=== PATIENT | male | born 1995 | race Caucasian/White ===

== ENCOUNTER 2021-12-09 04:55 | Emergency (ER) | payer OTHER, SELFPAY ==
--- NOTE | 2021-12-09 05:01 | ED.SKABFB ---
HPI - Skin/Abscess/Foreign Bdy General Chief complaint: Skin/Abscess/Foreign Body Stated complaint: SWOLLEN CHIN Time Seen by Provider: 12/09/21 05:01 Source: patient and RN notes reviewed Mode of arrival: ambulatory Limitations: no limitations History of Present Illness HPI narrative: Patient states his mother squeezed on the area on his chin was able to get some pus out of it. This morning he woke up and it was worse than what it was he went to get in the shower. He picked off the scab and tried to squeeze out anything that was present but nothing came out but clear fluid and blood. He says it is exquisitely tender. He denies any fever chills. complaint: abscess/boil Location: face (chin) Severity: severe Quality: burning, aching and constant Pain Consistency: constant Relieving factors: none Exacerbating factors: palpation Context: none Associated symptoms: denies other symptoms Treatments prior to arrival: attempted to drain pus at home Related Data Allergies Allergy/AdvReac Type Severity Reaction Status Date / Time No Known Allergies Allergy Verified 12/09/21 04:59 Review of Systems Review of Systems: All systems reviewed & are unremarkable except as noted in HPI and below PMFSH Past Medical History Medical History (Updated 12/09/21 @ 05:30 by Reece Jackson MD) No active medical problems Surgical History Surgical History (Updated 12/09/21 @ 05:30 by Reece Jackson MD) No pertinent past surgical history Family History Family History Other Hypertension Social History Social History Smoking status: Current every day smoker Tobacco type: cigarettes Alcohol intake: never Substance use: unknown Gender identity (if verbalized by the patient): Male Exam Const: General: healthy appearing, no acute distress and alert Nutritional Appearance: well nourished Orientation/consciousness: patient oriented x3 Limitations: no limitations HENMT: Head: normal to inspection Ears: external ears normal General nose exam: Normal external nose present Face and sinus: normal facial exam Mouth: Yes moist mucous membranes Eyes: Conjunctivae: conjunctivae normal Pupils: Equal, round and reactive pupils present EOM: EOMs intact bilaterally Neck: Neck: normal visual inspection Chest: Chest palpation & inspection: normal inspection of the chest Resp: Effort & Inspection: normal respiratory effort Auscultation: clear to auscultation bilaterally Cardio: Rate: regular rate Rhythm: regular rhythm GI: Auscultation: normal bowel sounds Back/Spine/Pelvis: Cervical Spine: cervical ROM normal Thoracic/Lumbar Spine: thoraco-lumbar ROM normal Skin: General skin exam: normal color Lesions: lesion noted nodule central chin size (2.5 cm), consistency soft, fluctuant ( no distinct organized abscess) and mobile, morphology round, surface warm and tender Rashes: no rashes Neuro: General: patient oriented x3, moves all extremities, no focal motor deficits and CN's II-XI intact bilaterally Speech: normal speech Gait exam (Neuro): Normal gait present Extrem: General: normal to inspection and no clubbing, cyanosis or edema Psych: Mental Status: mental status grossly normal Affect: normal affect Attitude: cooperative Course Course Emergency Course: After the patient numbing of the area and incision and drainage. I could not guarantee that there is an organized abscess that is ready to be drained. If it was not then he would have a scar with no improvement. He declined to have it incised at this time. Wishes to try antibiotics and warm compresses. Discharge Plan Discharge Clinical Impression: Abscess of skin or subcutaneous tissue Qualifiers: Site of cutaneous abscess: face Qualified Code(s): L02.01 - Cutaneous abscess of face Patient Disposition: Home, Self-Care Condition: Stable
[2021-12-09 05:02] VITALS: BP 145/101; PULSE 89; RESP 18; TEMP 36.6; O2SAT 94
[2021-12-09] MEDS: CLINDAMYCIN HCL 150 MG CAP 300 MG PO (05:18)
[2021-12-09 05:28] VITALS: BP 130/100
== END 2021-12-09 05:30 | disposition home or self-care (01) ==
PROVIDERS: Emergency Provider Emergency Medicine
DX: L02.01 Cutaneous abscess of face (principal)
CPT/HCPCS: 99283; A9270

== ENCOUNTER 2021-12-11 19:10 | Emergency (ER) | payer OTHER, SELFPAY ==
[2021-12-11 19:27] VITALS: BP 139/91; PULSE 76; RESP 16; TEMP 36.6; O2SAT 97
--- NOTE | 2021-12-11 19:57 | ED.SKABFB ---
HPI - Skin/Abscess/Foreign Bdy General Chief complaint: Skin/Abscess/Foreign Body Stated complaint: chin Time Seen by Provider: 12/11/21 19:15 Source: patient and RN notes reviewed Mode of arrival: ambulatory Limitations: no limitations History of Present Illness complaint: abscess/boil (chin, firm mildly erythematous 1.5 cm diam lump with draining punctum. was squeezed x 2) Onset (ago): day(s) (3) Tetanus up to date: unsure Location: face Severity: mild Severity scale (1-10): 2 Quality: aching and dull Pain Consistency: constant Relieving factors: medication Exacerbating factors: palpation Context: recent antibiotic Treatments prior to arrival: attempted to drain pus at home and antibiotic Related Data Allergies Allergy/AdvReac Type Severity Reaction Status Date / Time No Known Allergies Allergy Verified 12/11/21 19:21 Review of Systems Review of Systems: All systems reviewed & are unremarkable except as noted in HPI and below Constitutional: Constitutional: Reports no additional constitutional complaints Comments: draining chin firm lump Eyes: Eyes: Reports no additional eye complaints ENT: Reports system reviewed and no additional complaints, except as documented Cardiovascular: Cardiovascular: Reports no additional cardiovascular complaints Respiratory: Respiratory: Reports no additional respiratory complaints Gastrointestinal: Gastrointestinal: Reports no additional gastrointestinal complaints Musculoskeletal: Musculoskeletal: Reports no additional musculoskeletal complaints Integumentary/Breasts: Skin/Breast: Reports system reviewed and no additional complaints, except as docu Neurologic: Reports system reviewed and no additional complaints, except as documented Psychiatric: Psychiatric: Reports no additional psychiatric complaints Endocrine: Endocrine: Reports no additional endocrine complaints Hematologic/Lymphatic: Hematologic/Lymphatic: Reports no additional hematologic/lymphatic complaints Allergic/Immunologic: Allergic/Immunologic: Reports no additional allergic/immunologic complaints PMFSH Past Medical History Medical History Cellulitis of chin No active medical problems Surgical History Surgical History No pertinent past surgical history Family History Family History Other Hypertension Social History Social History Smoking status: Current every day smoker Tobacco type: cigarettes Alcohol intake: never Substance use: unknown Gender identity (if verbalized by the patient): Male Exam Const: General: healthy appearing and no acute distress Nutritional Appearance: well nourished Orientation/consciousness: patient oriented x3 Limitations: no limitations HENMT: Head: normal to inspection Ears: external ears normal, TM's normal bilaterally and EAC's normal General nose exam: Normal external nose present and Normal nares present Face and sinus: sinuses nontender Mouth: Yes Normal oral and palatal mucosa present and Yes moist mucous membranes Teeth and gingiva: dentition normal Throat: posterior oropharynx normal Other: chin: firm 1.5 cm lump, minimal erythema with a draining punctum. oropharyngeal exam wnl. Eyes: Conjunctivae: conjunctivae normal Pupils: Equal, round and reactive pupils present EOM: EOMs intact bilaterally Neck: Neck: normal visual inspection, no lymphadenopathy and no meningeal signs Chest: Chest palpation & inspection: normal inspection of the chest Resp: Effort & Inspection: normal respiratory effort Auscultation: clear to auscultation bilaterally Cardio: Rate: regular rate Rhythm: regular rhythm GI: GI Palp: Yes Soft to palpation and No Tenderness to palpation present (GI) Auscultation: normal bowel sounds
[2021-12-11] MEDS: IBUPROFEN 400 MG TABLET 800 MG PO (20:16)
[2021-12-11] MEDS: cefTRIAXone 1 GM, LIDOCAINE HCL 1% LOCAL INJ 2.1 ML IM (20:36)
[2021-12-11 20:44] VITALS: BP 130/75; PULSE 88; RESP 18; O2SAT 99
== END 2021-12-11 20:45 | disposition home or self-care (01) ==
PROVIDERS: Emergency Provider Emergency Medicine; PCP Nurse Practitioner Family
DX: L03.90 Cellulitis, unspecified (principal)
CPT/HCPCS: 96372; 99283; A9270; J0696

== ENCOUNTER 2022-05-06 23:12 | Emergency (ER) | payer OTHER, SELFPAY ==
--- NOTE | ~2022-05-06 | CT_ITS ---
EXAMINATION: CT abdomen pelvis w con DATE: 05/07/2022 00:02 INDICATION: Abdominal pain TECHNIQUE: Computed tomography (CT) of the abdomen and pelvis was performed with 100 mL Omnipaque-350 intravenous contrast. Automated exposure control and iterative reconstruction technique were employe d. The dose-length product was 323.75 mGy-cm. COMPARISON: None FINDINGS: Lung bases clear. Heart size normal. No pericardial or pleural effusion. Liver, gallbladder, spleen, pancreas, bilateral adrenal glands and left kidney are normal. 4 mm low-attenuation right renal cyst. Fluid throughout multiple loops of small bowel and much of the colon consistent with nonspecific petrona rrhea. No abnormal bowel wall thickening or obstruction. Normal appendix. Bladder is normal. No free intraperitoneal gas or fluid. No pathologically enlarged abdominal or pelvic lymphadenopathy. Mild th oracolumbar levocurvature. IMPRESSION: 1. Nonspecific diarrhea. Correlate clinically for enteritis. Reviewed, dictated and finalized at location A. [employer]
[2022-05-06 23:13] VITALS: PULSE 88; RESP 20; TEMP 36; O2SAT 100
[2022-05-06 23:16] VITALS: BP 136/78; PULSE 85; RESP 18; O2SAT 99
--- NOTE | 2022-05-06 23:17 | ED.ABDPAIN ---
HPI - Abdominal Pain General Chief Complaint: Abdominal Pain Stated Complaint: Abdominal Pain Time Seen by Provider: 05/06/22 23:17 Source: patient and RN notes reviewed Mode of arrival: ambulatory Limitations: no limitations History of Present Illness HPI narrative: patient states he started having lower abdominal pain that was severe sharp stabbing approximately 5 hours prior to arrival. He has been vomiting constantly. He had a small piece of banana and a little bit of water and immediately doubled over in pain threw up. He is just having bilious vomiting at this point. He says he has chills when he vomits and has pain. He does not think he has any fever. He had bowel movement this morning that was normal. MD elicited complaint: abdominal pain Onset (ago): hour(s) (5) Pain Consistency: constant Severity: severe Quality: stabbing and sharp Exacerbating factors: eating Relieving factors: nothing Associated symptoms: nausea, vomiting and chills Related Data Allergies Allergy/AdvReac Type Severity Reaction Status Date / Time No Known Allergies Allergy Verified 05/06/22 23:46 Review of Systems Review of Systems: All systems reviewed & are unremarkable except as noted in HPI and below Respiratory: Respiratory: Denies cough and Denies dyspnea Gastrointestinal: Gastrointestinal: Reports as per HPI Genitourinary: Genitourinary: Denies dysuria and Denies urinary frequency Musculoskeletal: Musculoskeletal: Denies myalgias PMFSH Past Medical History Medical History Cellulitis of chin No active medical problems Surgical History Surgical History No pertinent past surgical history Family History Family History Other Hypertension Social History Social History Smoking status: Current every day smoker Tobacco type: cigarettes Alcohol intake: never Substance use: unknown Living arrangements: with family Gender identity (if verbalized by the patient): Male Exam Const: General: no acute distress, alert and ill appearing acutely Nutritional Appearance: well nourished and thin Orientation/consciousness: patient oriented x3 Limitations: no limitations HENMT: Head: normal to inspection Ears: external ears normal Mouth: Yes dry mucous membranes Eyes: Conjunctivae: conjunctivae normal Pupils: Equal, round and reactive pupils present EOM: EOMs intact bilaterally Neck: Neck: normal visual inspection Resp: Effort & Inspection: normal respiratory effort Auscultation: clear to auscultation bilaterally Cardio: Rate: regular rate Rhythm: regular rhythm GI: GI Palp: Yes Tenderness to palpation present (GI) ( Severe greater in the lower abdominal quadrants as compared to the upper), Yes Guarding due to palpation present (GI) ( moderate to severe throughout) and No Rebound tenderness present Auscultation: Hypoactive bowel sounds present Back/Spine/Pelvis: Cervical Spine: cervical ROM normal Thoracic/Lumbar Spine: thoraco-lumbar ROM normal Skin: General skin exam: normal color Rashes: no rashes Neuro: General: patient oriented x3, moves all extremities, no focal motor deficits and CN's II-XI intact bilaterally Speech: normal speech Gait exam (Neuro): Normal gait present Extrem: General: normal to inspection and no clubbing, cyanosis or edema Psych: Mental Status: mental status grossly normal Affect: normal affect Attitude: cooperative Course Course Emergency Course: Patient given a total of 3 L of fluids IV. He is also given Zofran and Phenergan for nausea. His nausea finally improved and he was able to rest. He was then given metronidazole 500 mg IV for his enteritis found on CT scan. On arrival he also received some Dilaudid for his abdominal pain. He is able to keep water and
[2022-05-06] MEDS: ONDANSETRON INJ 4 MG/2 ML VIAL IV PUSH (23:37)
[2022-05-06] MEDS: SODIUM CHLORIDE 0.9% IV 2,000 ML 999 ML IV CONT (23:38)
[2022-05-06] MEDS: HYDROmorphone HCL INJ (*CRX) 2 MG/ML VIAL 1 MG IV PUSH (23:42)
[2022-05-06 23:46] LABS: Basophils Absolute Auto 0.04 K/mm3 (0.00-0.10); Basophils Percent Auto 0.2 % (0.0-1.0); Eosinophils Absolute Auto 0.04 K/mm3 (0.02-0.50); Eosinophils Percent Auto 0.2 % (1.0-6.0); Hematocrit 43.6 % (40.0-54.0); Hemoglobin 15.2 g/dL (14.0-18.0); Immature Granulocyte Absolute 0.08 K/mm3 (0.00-0.00); Immature Granulocyte Percent A 0.4 % (0.0-0.0); Lymphocytes Absolute Auto 0.95 K/mm3 (1.10-4.50); Lymphocytes Percent Auto 4.8 % (18.0-42.0); Mean Corpuscular HGB Conc 34.9 g/dL (32.0-36.0); Mean Corpuscular Hemoglobin 30.4 pg (27.0-31.0); Mean Corpuscular Volume 87.2 fL (78.0-102.0); Mean Platelet Volume 9.1 fl (8.7-11.0); Monocytes Absolute Auto 0.89 K/mm3 (0.10-0.90); Monocytes Percent Auto 4.5 % (2.0-11.0); Neutrophils Absolute Auto 17.6 K/mm3 (1.7-7.2); Neutrophils Percent Auto 89.9 % (50.0-70.0); Platelet Count Result 281 K/mm3 (150-420); Red Cell Distribution Width 11.5 % (11.6-14.4); White Blood Count 19.6 K/mm3 (4.8-10.8)
[2022-05-07] VITALS (8 sets, daily range): BP systolic 110–135; BP diastolic 63–84; PULSE 80–90; RESP 16–20; TEMP 36.8–37.1; O2SAT 94–99
[2022-05-07 00:01] LABS: Alanine Aminotransferase 17 U/L (16-63); Albumin Level 4.7 g/dL (3.4-5.0); Alkaline Phosphatase 63 U/L (46-116); Anion Gap 15 mmol/L (8-16); Aspartate Amino Transferase 17 U/L (15-37); Bilirubin Direct 0.1 mg/dL (0-0.2); Bilirubin,Total 0.5 mg/dL (0.00-1.00); Blood Urea Nitrogen 18 mg/dL (7-18); CRP < 0.5 mg/dL (0.0-0.9); Calcium 9.5 mg/dL (8.5-10.1); Carbon Dioxide 22 mmol/L (21-32); Chloride 102 mmol/L (98-108); Estimated CRCL calculation 104 ml/min; Estimated Glomerular Filt Rate > 60; Glucose 129 mg/dL (70-99); Lipase 40 U/L (16-77); Osmolality Calculated 291 mOsm/kg (285-295); Potassium 3.7 mmol/L (3.5-5.1); Sodium 139 mmol/L (136-145); Total Protein 8.5 g/dL (6.4-8.2)
[2022-05-07 00:06] LABS: Lactic Acid Reflex 2.7 mmol/L (0.4-2.0)
--- NOTE | 2022-05-07 00:18 | PC.NURSE ---
Pt c/o still feeling nauseous and dry heaving. Reports to ERP. Orders received.
[2022-05-07] MEDS: PROMETHAZINE HCL 25 MG/ML AMPUL IM (00:24)
[2022-05-07 00:49] LABS: Erythrocyte Sedimentation Rate 10 mm/hr (0-15)
[2022-05-07 01:05] LABS: Influenza A QL RT-PCR Negative (Negative); Influenza B QL RT-PCR Negative (Negative); SARS-CoV-2 RNA PCR Negative (Negative)
--- NOTE | 2022-05-07 01:26 | PC.NURSE ---
Pt reports that pain has decreased significantly since arrival. Pt states that he still feels nauseous and had an episode of dry heaving before having to use the bathroom. RN walks pt to bathroom where he is able to provide a urine sample. Pt states he also had a BM of diarrhea while using the bathroom. Pt is returned to his bed and given a warm blanket.
[2022-05-07 01:30] LABS: Add Urine Microscopic? NO; Appearance Urine Clear (Clear); Bilirubin Urine Negative (Negative); Blood Urine Negative (Negative); Color Urine Light Yellow (Yellow); Glucose Urine UA Negative (Negative); Ketones Urine Negative (Negative); Leukocyte Esterase Ur Negative LEU/UL (Negative); Nitrate Urine Negative (Negative); Protein Urine Negative (Negative); Urobilinogen Urine 0.2 mg/dL (0.2-1.0)
--- NOTE | 2022-05-07 01:34 | PC.NURSE ---
RN calls to report findings of tests. ERP orders for 500mg of Flagyl (metronidazole) IV. RN repeats order back for confirmation. ERP confirms.
[2022-05-07] MEDS: metroNIDAZOLE 500 MG/ISO 100ML 500 MG/100 ML BAG 100 MG IVPB (01:41)
--- NOTE | 2022-05-07 02:19 | PC.NURSE ---
Pt having emesis when RN walks in room to check on pt. RN calls ERP to update on pt status.
[2022-05-07 02:43] LABS: Reflex Lactic Acid Yes or No Add Lactic
[2022-05-07] MEDS: ONDANSETRON INJ 4 MG/2 ML VIAL IV PUSH (02:44)
--- NOTE | 2022-05-07 03:06 | PC.NURSE ---
Pt has an episode of bilious emesis after receiving 2nd dose of zofran. RN calls ERP. ERP states pt has maxed out his nausea medications and that pt needs to get it out of his system. RN informs pt of plan of action.
--- NOTE | 2022-05-07 03:09 | PC.NURSE ---
Pt's mother and pt state that pt may have eaten undercooked chicken at lunch time that no one else ate.
[2022-05-07 03:46] LABS: Lactic Acid 1.4 mmol/L (0.4-2.0)
--- NOTE | 2022-05-07 03:57 | PC.NURSE ---
RN calls ERP with to update on pt status. ERP orders for 1000mls of LR IV bolus. RN confirms order. ERP also offers pt to be DC after the fluids or stay and rest. RN informs pt and family of the plan of action and that fluids will be started shortly. Pt's mother states they will make the decision after the fluids.
--- NOTE | 2022-05-07 04:02 | PC.NURSE ---
No LR in [facility] in ED. RN calls 2nd floor to get a 1000ml bag of LR and goes to retrieve the medication.
[2022-05-07] MEDS: LACTATED RINGERS 1,000 ML 999 ML IV CONT (04:13)
--- NOTE | 2022-05-13 12:47 | PC.NURSE ---
FINAL BLOOD CULTURE RESULTS X2: NO GROWTH AFTER 5 DAYS, NO ACTION NEEDED.
== END 2022-05-07 07:06 | disposition home or self-care (01) ==
PROVIDERS: Emergency Provider Emergency Medicine; PCP Family Medicine
DX: K52.9 Noninfective gastroenteritis and colitis, unspecified (principal); F17.200 Nicotine dependence, unspecified, uncomplicated; Z20.822 Contact with and (suspected) exposure to COVID-19
CPT/HCPCS: 36415; 74177; 80053; 81003; 82248; 83605; 83690; 85025; 85652; 86140; 87040; 87636; 96361; 96365; 96372; 96374; 96375; 99284; J1170; J2405; J2550; J7030; J7040; J7120; Q9967

== ENCOUNTER 2023-08-31 12:35 | Emergency (ER) | payer OTHER, SELFPAY ==
[2023-08-31 12:35] VITALS: BP 152/89; PULSE 82; RESP 18; TEMP 36.8; O2SAT 97
[2023-08-31 12:45] VITALS: O2SAT 99
[2023-08-31] MEDS: ONDANSETRON HCL ODT 4 MG TABLET PO (12:48)
[2023-08-31 13:16] LABS: Strep Group A RT-PCR NOT DETECTED (Negative)
--- NOTE | 2023-08-31 13:23 | ED.URI ---
HPI - URI/Sore Throat General Chief Complaint: Upper Respiratory Infection Stated Complaint: sore throat Time Seen by Provider: 08/31/23 12:41 Source: patient Mode of arrival: ambulatory Limitations: no limitations History of Present Illness HPI Narrative: this is a 28-year-old male who presents with cough congestion sore throat with no shortness of breath no audible wheezing no fever chills no nausea or vomiting. Patient complains of 2 day history of cough with bilateral ear pressure. MD elicited complaint: cough, sore throat, nasal congestion and sinus pain Onset (ago): day(s) Consistency: constant Severity: moderate Related Data Allergies Allergy/AdvReac Type Severity Reaction Status Date / Time No Known Allergies Allergy Verified 08/31/23 12:38 Review of Systems Review of Systems: All systems reviewed & are unremarkable except as noted in HPI and below PMFSH Past Medical History Medical History Cellulitis of chin No active medical problems Surgical History Surgical History No pertinent past surgical history Family History Family History Other Hypertension Social History Social History Smoking status: Current every day smoker Tobacco type: cigarettes Alcohol intake: never Substance use: unknown Living arrangements: with family Gender identity (if verbalized by the patient): Male Exam Const: General: healthy appearing Nutritional Appearance: well nourished Orientation/consciousness: patient oriented x3 Limitations: no limitations HENMT: Other: Frontal maxillary sinus tenderness with palpation Neck: Neck: normal visual inspection Chest: Chest palpation & inspection: normal inspection of the chest Resp: Effort & Inspection: normal respiratory effort Auscultation: clear to auscultation bilaterally Cardio: Rate: regular rate Rhythm: regular rhythm Course Course Emergency Course: rapid strep negative, will administer a dose of Augmentin for sinus infection. Vital Signs Vital signs: Vital Signs Temperature 36.8 C 08/31/23 12:35 Pulse Rate 82 08/31/23 12:35 Respiratory Rate 18 08/31/23 12:35 Blood Pressure 152/89 H 08/31/23 12:35 Pulse Oximetry 97 08/31/23 12:35 Oxygen Delivery Room Air 08/31/23 12:35 Temperature 36.8 C 08/31/23 12:35 Pulse Rate 82 08/31/23 12:35 Respiratory Rate 18 08/31/23 12:35 Blood Pressure 152/89 H 08/31/23 12:35 Pulse Oximetry 99 08/31/23 12:45 Oxygen Delivery Room Air 08/31/23 12:45 MDM - URI/Sore Throat Lab Data Labs: Lab Results 08/31/23 Range/Units 12:41 Group A Strep (PCR) Not detected (Negative) Critical Care Time Critical Care Time Critical Care Time: No Discharge Plan Discharge Clinical Impression: Sinusitis Qualifiers: Sinusitis location: frontal Chronicity: acute Recurrence: non-recurrent Qualified Code(s): J01.10 - Acute frontal sinusitis, unspecified Patient Disposition: Home, Self-Care Condition: Stable Instructions: Antibiotic Form, Sinusitis (ED) Additional Instructions: Advised to take medicine as prescribed and follow with primary if symptoms persist or worsen. Can use Claritin over the counter along with antibiotics. Prescriptions: New amoxicillin-pot clavulanate [Augmentin] 500-125 mg tablet 1 tablet PO TID Qty: 30 0RF ondansetron 4 mg tablet,disintegrating 4 mg PO Q6H PRN (Reason: nausea and vomiting) Qty: 14 0RF Follow-up/Referrals: Andreia Cabral [employer] [Primary Care Provider] - Stand Alone Forms: Work/School Release IP Time of Disposition: 13:28
[2023-08-31 13:37] VITALS: BP 122/73; PULSE 67; RESP 16; TEMP 36.8; O2SAT 97
[2023-08-31] MEDS: AMOXICILLIN/CLAVULANATE K 875-125 MG TAB 1 TABLET PO (13:45)
== END 2023-08-31 13:45 | disposition home or self-care (01) ==
PROVIDERS: Emergency Provider Emergency Medicine; PCP Nurse Practitioner Family
DX: J01.10 Acute frontal sinusitis, unspecified (principal); F17.210 Nicotine dependence, cigarettes, uncomplicated
CPT/HCPCS: 87651; 99283; A9270

== ENCOUNTER 2023-09-03 16:25 | Emergency (ER) | payer OTHER, SELFPAY ==
[2023-09-03 16:25] VITALS: BP 136/107; PULSE 72; RESP 22; TEMP 36.6; O2SAT 99
[2023-09-03] MEDS: ONDANSETRON HCL ODT 4 MG TABLET PO (16:42)
--- NOTE | 2023-09-03 16:44 | ED.NAVMDI ---
HPI - Nausea/Vomiting/Diarrhea General Chief complaint: Nausea/Vomiting/Diarrhea Stated complaint: hands and feet tingling Time Seen by Provider: 09/03/23 16:29 Source: patient Mode of arrival: ambulatory Limitations: no limitations History of Present Illness HPI Narrative: This is a 28-year-old male that presents with some nausea and episode of vomiting with some numbness and tingling to his fingers and toes after he started taking Augmentin for sinus infection. Currently there is no fever chills there is no chest pain no shortness of breath patient does appear anxious with no dysuria no fever chills no abdominal pain no diarrhea constipation. MD elicited complaint: nausea and vomiting Onset (ago): day(s) Related Data Allergies Allergy/AdvReac Type Severity Reaction Status Date / Time No Known Allergies Allergy Verified 09/03/23 16:34 Review of Systems Review of Systems: All systems reviewed & are unremarkable except as noted in HPI and below PMFSH Past Medical History Medical History Cellulitis of chin No active medical problems Surgical History Surgical History No pertinent past surgical history Family History Family History Other Hypertension Social History Social History Smoking status: Current every day smoker Tobacco type: cigarettes Alcohol intake: never Substance use: unknown Living arrangements: with family Gender identity (if verbalized by the patient): Male Exam Const: General: healthy appearing Nutritional Appearance: well nourished Orientation/consciousness: patient oriented x3 HENMT: Head: normal to inspection Eyes: Conjunctivae: conjunctivae normal Neck: Neck: normal visual inspection, no lymphadenopathy and no meningeal signs Chest: Chest palpation & inspection: normal inspection of the chest Resp: Effort & Inspection: normal respiratory effort Auscultation: clear to auscultation bilaterally Cardio: Rate: regular rate Rhythm: regular rhythm GI: GI Palp: Yes Soft to palpation Auscultation: normal bowel sounds Skin: General skin exam: normal color Rashes: no rashes Neuro: General: patient oriented x3 and moves all extremities Cranial nerves: Yes Nystagmus not present Speech: normal speech Extrem: General: normal to inspection, no clubbing, cyanosis or edema and no pedal edema Psych: Affect: Anxious affect present Course Course Emergency Course: Administered a dose of Zofran ODT for nausea vomiting, advised patient to discontinue Augmentin and take different antibiotics and follow up with primary if symptoms persist or worsen. Vital Signs Vital signs: Vital Signs Temperature 36.6 C 09/03/23 16:25 Pulse Rate 72 09/03/23 16:25 Respiratory Rate 22 H 09/03/23 16:25 Blood Pressure 136/107 H 09/03/23 16:25 Pulse Oximetry 99 09/03/23 16:25 Oxygen Delivery Room Air 09/03/23 16:25 Temperature 36.6 C 09/03/23 16:25 Pulse Rate 72 09/03/23 16:25 Respiratory Rate 22 H 09/03/23 16:25 Blood Pressure 136/107 H 09/03/23 16:25 Pulse Oximetry 99 09/03/23 16:25 Oxygen Delivery Room Air 09/03/23 16:25 Critical Care Time Critical Care Time Critical Care Time: No Discharge Plan Discharge Clinical Impression: Nausea & vomiting Qualifiers: Vomiting type: unspecified Qualified Code(s): R11.2 - Nausea with vomiting, unspecified Patient Disposition: Home, Self-Care Condition: Stable Instructions: Antibiotic Form, Acute Nausea and Vomiting (ED) Additional Instructions: discontinue Augmentin and take medicine as prescribed follow with primary if symptoms persist or worsen. Prescriptions: New ondansetron 4 mg tablet,disintegrating 4 mg PO Q6H PRN (Reason: nausea and vomiting) Qty: 14
[2023-09-03 16:47] VITALS: BP 121/85
[2023-09-03 17:04] VITALS: BP 122/82; PULSE 63; RESP 17; TEMP 36.6; O2SAT 99
== END 2023-09-03 17:04 | disposition home or self-care (01) ==
PROVIDERS: Emergency Provider Emergency Medicine; PCP Nurse Practitioner Family
DX: R11.2 Nausea with vomiting, unspecified (principal); F17.210 Nicotine dependence, cigarettes, uncomplicated
CPT/HCPCS: 99283; A9270

== ENCOUNTER 2023-12-31 03:19 | Emergency (ER) | payer OTHER, SELFPAY ==
--- NOTE | ~2023-12-31 | CT_ITS ---
EXAMINATION: CT abdomen pelvis w con DATE: 12/31/2023 04:27 INDICATION: Abdominal pain and vomiting TECHNIQUE: Computed tomography (CT) of the abdomen and pelvis was performed with 100 mL Omnipaque-350 intravenous contrast. Automated exposure control and iterative reconstruction technique were employe d. The dose-length product was 548.75 mGy-cm. COMPARISON: None FINDINGS: Lung bases are clear. Heart size is normal. No pericardial or pleural effusion. Bilateral gynecomasti a. Liver, gallbladder, spleen, pancreas, bilateral adrenal glands and left kidney are normal. [address] in the right kidney. Bowels including the appendix are normal. No free intraperitoneal gas or flui d. No pathologically enlarged abdominal and pelvic lymphadenopathy. L4 limbus vertebrae with unfused apophyseal center at the anterosuperior margin of the vertebral body. IMPRESSION: 1. No acute intra-abdominal/pelvic process. Reviewed, dictated and finalized at location A.
[2023-12-31 03:29] VITALS: BP 145/108; PULSE 75; RESP 20; TEMP 36.7; O2SAT 100
[2023-12-31 03:32] VITALS: BP 145/108; PULSE 75; RESP 20; TEMP 36.7; O2SAT 100
--- NOTE | 2023-12-31 03:38 | ED.ABDPAIN ---
HPI - Abdominal Pain General Chief Complaint: Nausea/Vomiting/Diarrhea Stated Complaint: Sore throat Time Seen by Provider: 12/31/23 03:37 Source: patient Mode of arrival: ambulatory Limitations: no limitations History of Present Illness HPI narrative: patient is 28 years old white male drove himself to the emergency room complaining of not feeling good started 4 hours ago, subsequently started having nausea and frequent dry heaving and vomiting, bounding headache. Patient reports that his roommate had similar symptoms 2 days. Patient denies any fever, diarrhea. Currently complaining of generalized abdominal pain history of vaping, intermittent marijuana use, no is, no history of abdominal surgery Related Data Allergies Allergy/AdvReac Type Severity Reaction Status Date / Time amoxicillin Allergy Severe Anxiety Verified 12/31/23 03:31 Review of Systems Review of Systems: All systems reviewed & are unremarkable except as noted in HPI and below PMFSH Past Medical History Medical History Cellulitis of chin No active medical problems Surgical History Surgical History No pertinent past surgical history Family History Family History Other Hypertension Social History Social History Smoking status: Current every day smoker Tobacco type: cigarettes Alcohol intake: never Substance use: unknown Living arrangements: with family Gender identity (if verbalized by the patient): Male Exam Narrative: General appearance: Well-developed, well-nourished Skin: Normal color Head: Normocephalic, nontraumatic Eyes: Clear conjunctiva ENT: Oropharynx normal, ears normal, nose normal Neck: Supple, nontender Chest and respiratory: Airway patent, no respiratory distress, no accessory muscle use Heart: Regular rate/rhythm Abdomen: Soft, general abdominal tenderness, no guarding or rebound, no organomegaly, quiet bowel sounds Vascular: Normal peripheral pulses, normal capillary refill. Musculoskeletal: Normal range of motion, nontender back Neurologic: Alert and oriented ?3, JANITOR HELPER is normal as tested, no gross motor deficit Course Vital Signs Vital signs: Vital Signs Temperature 36.7 C 12/31/23 03:29 Pulse Rate 75 09/26/24 03:29 Respiratory Rate 20 12/31/23 03:29 Blood Pressure 145/108 H 12/31/23 03:29 Pulse Oximetry 100 12/31/23 03:29 Oxygen Delivery Room Air 12/31/23 03:29 Temperature 36.6 C 12/31/23 05:43 Pulse Rate 64 12/31/23 05:43 Respiratory Rate 19 12/31/23 05:43 Blood Pressure 120/74 12/31/23 05:43 Pulse Oximetry 98 12/31/23 05:43 Oxygen Delivery Room Air 12/31/23 05:43 MDM - Abdominal Pain MDM Narrative Medical decision making narrative: patient presents with nausea, dry heaves, headache, coughing up phlegm, not feeling well started few hours prior to arrival Vital signs showed blood pressure of 145/108 Physical examination showed restless, anxious patient with coughing and dry heaving Differential diagnosis include viral infection, anxiety like symptoms, appendicitis, pancreatitis, cholecystitis, gastroenteritis Blood workup today showed potassium of 3.2 otherwise within normal limits CT abdomen and pelvis with IV contrast showed no acute abnormalities. At the time of discharge patient is telling me that he is going through a lot of stress lately, lost a lot of family member in the last 12 months and started new job recently. Discharged on Zofran the pt was discharg
--- NOTE | 2023-12-31 03:42 | PC.NURSE ---
covid pcr obtained and taken to lab
[2023-12-31 03:52] LABS: Basophils Absolute Auto 0.03 K/mm3 (0.00-0.10); Basophils Percent Auto 0.4 % (0.0-1.0); Eosinophils Absolute Auto 0.09 K/mm3 (0.02-0.50); Eosinophils Percent Auto 1.1 % (1.0-6.0); Hematocrit 39.8 % (40.0-54.0); Hemoglobin 13.9 g/dL (14.0-18.0); Immature Granulocyte Absolute 0.04 K/mm3 (0.00-0.00); Immature Granulocyte Percent A 0.5 % (0.0-0.0); Lymphocytes Absolute Auto 3.02 K/mm3 (1.10-4.50); Lymphocytes Percent Auto 36.7 % (18.0-42.0); Mean Corpuscular HGB Conc 34.9 g/dL (32-36); Mean Corpuscular Hemoglobin 29.7 pg (27.0-31.0); Mean Platelet Volume 8.6 fl (8.7-11.0); Monocytes Absolute Auto 0.79 K/mm3 (0.10-0.90); Monocytes Percent Auto 9.6 % (2.0-11.0); Neutrophils Absolute Auto 4.26 K/mm3 (1.70-7.20); Neutrophils Percent Auto 51.7 % (50.0-70.0); Platelet Count Result 273 K/mm3 (150-420); Red Blood Count 4.68 M/mm3 (4.70-6.10); Red Cell Distribution Width 11.6 % (11.6-14.4); White Blood Count 8.2 K/mm3 (4.8-10.8)
[2023-12-31] MEDS: MORPHINE SULFATE (*CRX) 4 MG/ML INJ IV PUSH (03:54)
[2023-12-31] MEDS: SODIUM CHLORIDE 0.9% IV 1,000 ML 999 ML IV CONT (03:57)
[2023-12-31] MEDS: ONDANSETRON INJ 4 MG/2 ML VIAL IV PUSH (03:58)
[2023-12-31 04:10] LABS: Alanine Aminotransferase 17 U/L (16-63); Albumin Level 4.4 g/dL (3.4-5.0); Alkaline Phosphatase 66 U/L (46-116); Anion Gap 16 mmol/L (4-12); Aspartate Amino Transferase 20 U/L (15-37); Blood Urea Nitrogen 17 mg/dL (7-18); Calcium 9.5 mg/dL (8.5-10.1); Carbon Dioxide 21 mmol/L (21-32); Chloride 101 mmol/L (98-108); Estimated CRCL calculation 86 ml/min; Estimated Glomerular Filt Rate > 60; Glucose 122 mg/dL (70-99); Lipase 28 U/L (16-77); Osmolality Calculated 288 mOsm/kg (285-295); Potassium 3.2 mmol/L (3.5-5.1); Sodium 138 mmol/L (136-145)
[2023-12-31 04:34] LABS: Add Urine Microscopic? NO; Appearance Urine Clear (Clear); Bilirubin Urine Negative (Negative); Blood Urine Negative (Negative); Color Urine Yellow (Yellow); Glucose Urine UA Negative (Negative); Ketones Urine 1+ (Negative); Leukocyte Esterase Ur Negative LEU/UL (Negative); Nitrate Urine Negative (Negative); Protein Urine Negative (Negative); Specific Grav Ur >= 1.030 (1.010-1.020); Urobilinogen Urine 0.2 mg/dL (0.2-1.0)
[2023-12-31 04:35] LABS: SARS-CoV-2 RNA PCR Negative (Negative)
[2023-12-31 04:37] LABS: Influenza A QL RT-PCR Negative (Negative); Influenza B QL RT-PCR Negative (Negative); RSV RNA, RT-PCR Negative (Negative)
[2023-12-31] MEDS: KETOROLAC 30 MG/ML VIAL (*BKC) IV PUSH (04:52)
[2023-12-31 05:26] LABS: Strep Group A RT-PCR NOT DETECTED (Negative)
[2023-12-31 05:43] VITALS: BP 120/74; PULSE 64; RESP 19; TEMP 36.6; O2SAT 98
== END 2023-12-31 06:57 | disposition home or self-care (01) ==
PROVIDERS: Emergency Provider Emergency Medicine; PCP Nurse Practitioner Family
DX: R10.9 Unspecified abdominal pain (principal); B34.9 Viral infection, unspecified; F17.210 Nicotine dependence, cigarettes, uncomplicated; Z20.822 Contact with and (suspected) exposure to COVID-19
CPT/HCPCS: 36415; 74177; 80053; 81003; 83690; 85025; 87637; 87651; 96361; 96374; 96375; 99284; J1885; J2270; J2405; J7030; Q9967

== ENCOUNTER 2024-06-06 07:22 | Emergency (ER) | payer OTHER, SELFPAY ==
[2024-06-06 07:22] VITALS: BP 141/79; PULSE 90; RESP 18; TEMP 37.6; O2SAT 97
--- NOTE | 2024-06-06 07:24 | ED.URI ---
HPI - URI/Sore Throat General Chief Complaint: Upper Respiratory Infection Stated Complaint: flu-like symptoms Time Seen by Provider: 06/06/24 07:22 Source: patient Mode of arrival: ambulatory Limitations: no limitations History of Present Illness HPI Narrative: patient is a 28-year-old male with nausea vomiting and some abdominal discomfort over the past 2 days. He initially was thinking it was about 4 days prior however. All in all he has been having some GI symptoms and malaise and not feeling well specifically for the past 2 days. MD elicited complaint: cough, rhinorrhea and nasal congestion Pertinent past history: other ( None) Onset (ago): day(s) (2) Consistency: constant Severity: moderate Pain scale (0-10): 5 Description of mucous: clear Able to tolerate fluids by mouth: Yes Exacerbating factors: nothing Relieving factors: nothing Context: sick contacts and other(s) with similar symptoms Associated symptoms: myalgias, nasal congestion, cough, abdominal pain, nausea and vomiting Treatments prior to arrival: none Related Data Allergies Allergy/AdvReac Type Severity Reaction Status Date / Time amoxicillin Allergy Severe Anxiety Verified 06/06/24 07:26 Review of Systems Review of Systems: All systems reviewed & are unremarkable except as noted in HPI and below Constitutional: Constitutional: Reports no additional constitutional complaints Eyes: Eyes: Reports no additional eye complaints ENT: Reports system reviewed and no additional complaints, except as documented Cardiovascular: Cardiovascular: Reports no additional cardiovascular complaints Respiratory: Respiratory: Reports no additional respiratory complaints Gastrointestinal: Gastrointestinal: Reports no additional gastrointestinal complaints Genitourinary: Genitourinary: Reports no additional male genitourinary complaints Musculoskeletal: Musculoskeletal: Reports no additional musculoskeletal complaints Integumentary/Breasts: Skin/Breast: Reports system reviewed and no additional complaints, except as docu Neurologic: Reports system reviewed and no additional complaints, except as documented Psychiatric: Psychiatric: Reports no additional psychiatric complaints Endocrine: Endocrine: Reports no additional endocrine complaints Hematologic/Lymphatic: Hematologic/Lymphatic: Reports no additional hematologic/lymphatic complaints Allergic/Immunologic: Allergic/Immunologic: Reports no additional allergic/immunologic complaints PMFSH Past Medical History Medical History Cellulitis of chin No active medical problems Surgical History Surgical History No pertinent past surgical history Family History Family History Other Hypertension Social History Social History Smoking status: Current every day smoker Tobacco type: cigarettes Alcohol intake: never Substance use: unknown Living arrangements: with family Gender identity (if verbalized by the patient): Male Exam Const: General: ill appearing Nutritional Appearance: well nourished Orientation/consciousness: patient oriented x3 Limitations: no limitations HENMT: Head: normal to inspection Ears: external ears normal Face/Nose/Sinus: Normal external nose present Eyes: Conjunctivae: conjunctivae normal Pupils: Equal, round and reactive pupils present EOM: EOMs intact bilaterally Neck: Neck: normal visual inspection Chest: Chest palpation & inspection: normal inspection of the chest Resp: Effort & Inspection: normal respiratory effort and not labored Auscultation: clear to auscultation bilaterally and no crackles Cardio: Rate: regular rate Rhythm: regular rhythm Heart sounds: no murmurs GI: Inspection: non-distended GI Palp: Yes Soft to palpation and No Tenderness to palpation present (GI) Auscultation: normal bowel sounds : General: Yes bladder normal to palpation Back/Spine/Pelvis: Back: no CVA tenderness Skin: General skin exam: normal color Rashes: no rashes Wounds: no wounds Neuro: General: patient oriented x3 Cranial nerves: Yes Nystagmus not present Speech: normal speech Extrem: General: normal to inspection Psych: Mental Status: mental status grossly normal Affect: normal affect Attitude: cooperative Course Vital Signs Vital signs: Vital Signs Temperature 37.6 C 06/06/24 07:22 Pulse Rate 90 06/06/24 07:22 Respiratory Rate 18 06/06/24 07:22 Blood Pressure 141/79 H 06/06/24 07:22 Pulse Oximetry 97 06/06/24 07:22 Oxygen Delivery Room Air 06/06/24 07:22 Temperature 37.6 C 06/06/24 07:22 Pulse Rate 90 06/06/24 07:22 Respiratory Rate 18 06/06/24 07:22 Blood Pressure 141/79 H 06/06/24 07:22 Pulse Oximetry 97 06/06/24 07:22 Oxygen Delivery Room Air 06/06/24 07:22 MDM - URI/Sore Throat MDM Narrative Medical decision making narrative: patient is a 28-year-old male with not feeling well for the past few days. He is here for evaluation. We will do a COVID panel test at this time. Lab Data Attestation: I reviewed the patient's lab results. Labs: Lab Results 06/06/24 Range/Units 07:25 Influenza A (RT-PCR) Positive A (Negative) Influenza B (RT-PCR) Negative (Negative) RSV (RT-PCR) Negative (Negative) SARS-CoV-2 RNA (RT-PCR) Negative (Negative) Discharge Plan Discharge Clinical Impression: Influenza A Patient Disposition: Home, Self-Care Condition: Stable Instructions: Influenza (ED) Patient Language: Kiswahili Prescriptions: New oseltamivir [Tamiflu] 75 mg capsule 75 mg PO BID 5 Days Qty: 10 0RF No Action ondansetron 4 mg tablet,disintegrating 4 mg PO Q4H PRN (Reason: nausea and vomiting) 3 Days Qty: 10 0RF Follow-up/Referrals: Andreia Cabral MANUFACTURING ENGINEER PAINT [Primary Care Provider] - Stand Alone Forms: Work/School Release IP Time of Disposition: 08:15
[2024-06-06] MEDS: ONDANSETRON HCL ODT 4 MG TABLET PO (07:29)
[2024-06-06 08:09] LABS: SARS-CoV-2 RNA PCR Negative (Negative)
[2024-06-06 08:14] LABS: Influenza A QL RT-PCR Positive (Negative); Influenza B QL RT-PCR Negative (Negative); RSV RNA, RT-PCR Negative (Negative)
[2024-06-06 08:30] VITALS: BP 128/70; PULSE 78; RESP 18; TEMP 37.5; O2SAT 98
--- NOTE | 2024-06-06 08:30 | PC.NURSE ---
NO EMESIS NOTED DURING ED VISIT
== END 2024-06-06 08:30 | disposition home or self-care (01) ==
PROVIDERS: Emergency Provider Emergency Medicine; PCP Nurse Practitioner Family
DX: J10.1 Influenza due to other identified influenza virus with other respiratory manifestations (principal); F17.210 Nicotine dependence, cigarettes, uncomplicated; Z20.822 Contact with and (suspected) exposure to COVID-19
CPT/HCPCS: 87637; 99283; A9270

== ENCOUNTER 2024-08-09 07:59 | Outpatient (CLI) | payer OTHER, SELFPAY ==
--- NOTE | ~2024-08-09 | US_ITS ---
US abdomen complete EXAMINATION: US Abdomen Complete INDICATION: Right upper quadrant pain PROCEDURE: Realtime High Resolution abdomen ultrasound. COMPARISON: No prior studies for comparison FINDINGS: Gallbladder within normal limits. No gallstones, pericholecystic fluid, gallbladder wall t hickening or biliary dilatation. Common bile duct measures 3 mm. Liver echotexture is increased, consistent with fatty infiltration.. Pancreas within normal limits. Pancreatic tail is obscured by bowel gas. Spleen is unremarkeable. Renal echotexture is within norm al limits bilaterally without hydronephrosis, contour deforming mass or renal stone. Right kidney pam sures 9.4 cm. Left kidney measures 9.2 cm. Visualized aspects of the aorta and IVC are within normal limits. Portal vein is patent. No sonograph ic Hicks's sign indicated by the technologist. IMPRESSION: 1: Fatty infiltration of the liver. Reviewed, dictated and finalized at location A.
--- OUTSIDE RECORDS SUMMARY | 2024-08-09 08:07 | XMS_ITS | Clinical Summary ---
Author Organization [facility] Address [address] [place] [address] Care Team Providers Care Grocery Store Bagger Name Role Phone Andreia Cabral PORT PURSER Primary Care Provider [phone] Allergies No known active allergies Medications ondansetron 4 MG disintegrating tablet Take 1 tablet (4 mg total) by mouth every 8 (eight) hours as needed for Nausea. 20 tablet 2 Active Social History Tobacco Use Types Packs/Day Years Used Date Smoking Tobacco: Never Smokeless Tobacco: Never Alcohol Use Standard Drinks/Week Comments Never 0 (1 standard drink = 0.6 oz pur e alcohol) Sex and Gender Information Value Date Recorded Sex Assigned at Not on file Legal Sex Male 2:35 AM MEDICAL BILLER/CODER Gender Identity Not on file Sexual Orientation Not on file Last Filed Vital Signs Vital Sign Reading Time Taken Comments Blood Pressure 139/77 05/15/2021 2:45 AM MEDICAL BILLER/CODER Pulse 86 05/15/2021 2:45 AM MEDICAL BILLER/CODER Temperature 36.1 C (97 F) 05/15/2021 2:45 AM MEDICAL BILLER/CODER Respiratory Rate 18 05/15/2021 2:45 AM MEDICAL BILLER/CODER Oxygen Saturation 96% 05/15/2021 2:45 AM MEDICAL BILLER/CODER Inhaled Oxygen Concentration - - Weight 71.7 kg (158 lb) 05/15/2021 2:45 AM MEDICAL BILLER/CODER Height 180.3 cm (5' 11 ) 05/15/2021 2:45 AM MEDICAL BILLER/CODER Body Mass Index 22.04 05/15/2021 2:45 AM MEDICAL BILLER/CODER Plan of Treatment Health Maintenance Due Date Last Done Comments Annual Physical 2000 DTaP, Tdap and Td Vaccines (5 - Tdap) 2008 09/19/1998, 01/18/1998, 1997, Additional history exists Hepatitis C 07/04/2015 COVID-19 Vaccine (2023- season) 2023 Hepatitis B Vaccines Completed 09/19/1998, 1997, 1997, Additional history exists HPV Vaccines Aged Out No longer eligi ble based on patient's age to complete this topic Meningococcal B Vaccine Aged Out No l onger eligible based on patient's age to complete this topic Meningococcal Vaccine Aged Out No dominic chioma eligible based on patient's age to complete this topic Pneumococcal Vaccine: Pediatrics (0 to 5 Years) and At-Risk Patients (6 to 49 Years) Aged Out No longer eligible based on patient's age to complete this topic RSV Immunizations Under 20 Months Aged Out No longer eligible based on patient's age to complete this topic Insurance [place] Care Teams Grocery Store Bagger Relationship Specialty Start Date End Date Andreia Cabral FNP [address] [place] [address] PCP - General NURSE PRACTITIONER 05/15/21
--- NOTE | 2024-08-09 08:08 | ECG_ITS ---
Test Date: 2024-08-09 08:34:48 Measurements Intervals [place] Rate: 58 P: 51 [place]: 135 QRS: 90 QRSD: 113 T: 60 QT: 395 QTc: 390 Interpretive Statements SINUS BRADYCARDIA No previous ECG available for comparison Electronically Signed On 08-09-2024 14:14:42 CDT by Inocente Houston M.D.
== END 2024-08-09 08:00 | disposition home or self-care (01) ==
LOC: CHSIMG 08:03
PROVIDERS: PCP Nurse Practitioner Family; Visit Provider Nurse Practitioner Family
DX: R10.11 Right upper quadrant pain (principal); R03.0 Elevated blood-pressure reading, without diagnosis of hypertension; Z82.49 Family history of ischemic heart disease and other diseases of the circulatory system; R00.1 Bradycardia, unspecified; K76.0 Fatty (change of) liver, not elsewhere classified
CPT/HCPCS: 76700; 93005

== ENCOUNTER 2024-08-20 12:33 | Emergency (ER) | payer OTHER, SELFPAY ==
[2024-08-20 12:33] VITALS: BP 149/85; PULSE 86; RESP 20; TEMP 36.6; O2SAT 100
--- OUTSIDE RECORDS SUMMARY | 2024-08-20 12:41 | XMS_ITS | Clinical Summary ---
Author Organization [facility] Address [address] [place] [address] Care Team Providers Care Lawn Caretaker Name Role Phone Andreia Cabral RETORT PRE COOKER Primary Care Provider [phone] Allergies No known active allergies Medications ondansetron [...] on file Legal Sex Male 2:35 AM VARNISH BLENDER Gender Identity Not on file Sexual Orientation Not on file Last Filed Vital Signs Vital Sign Reading Time Taken Comments Blood Pressure 139/77 05/15/2021 2:45 AM VARNISH BLENDER Pulse 86 05/15/2021 2:45 AM VARNISH BLENDER Temperature 36.1 C (97 F) 05/15/2021 2:45 AM VARNISH BLENDER Respiratory Rate 18 05/15/2021 2:45 AM VARNISH BLENDER Oxygen Saturation 96% 05/15/2021 2:45 AM VARNISH BLENDER Inhaled Oxygen Concentration - - Weight 71.7 kg (158 lb) 05/15/2021 2:45 AM VARNISH BLENDER Height 180.3 cm (5' 11 ) 05/15/2021 2:45 AM VARNISH BLENDER Body Mass Index 22.04 05/15/2021 2:45 AM VARNISH BLENDER Plan of Treatment Health Maintenance Due Date [...] patient's age to complete this topic Insurance [place] Care Teams Lawn Caretaker Relationship Specialty Start Date End Date Andreia Cabral FNP [address] [place] [address] PCP - General NURSE PRACTITIONER 05/15/21
[2024-08-20] MEDS: TETRACAINE HCL 0.5% OPHTH SOLN 4 ML BTL 1 DROP EACH EYE (12:48)
[2024-08-20] MEDS: FLUORESCEIN SOD 1 MG/STRIP EACH EYE (12:48)
--- NOTE | 2024-08-20 12:56 | ED_ITS ---
HPI - Eye Problem General Chief complaint: Eye Problems Stated complaint: wood shavings in eye Time Seen by Provider: 08/20/24 12:41 Source: patient Mode of arrival: ambulatory Limitations: no limitations History of Present Illness HPI Narrative: patient was cutting trees, possible piece of wood in the right eye, possible left eye to but not at the same effect at the right 1. Prior to arrival. Related Data Allergies Allergy/AdvReac Type Severity Reaction Status Date / Time amoxicillin Allergy Severe Anxiety Verified 08/20/24 12:39 CILANTRO Allergy Mild Itching Verified 08/20/24 12:39 Review of Systems Review of Systems: All systems reviewed & are unremarkable except as noted in HPI and below PMFSH Past Medical History Medical History Cellulitis of chin No active medical problems Surgical History Surgical History No pertinent past surgical history Family History Family History Father Acute myocardial infarction Other Hypertension Social History Social History Smoking status: Current every day smoker Tobacco type: cigarettes and e-cigarettes/vaping Alcohol intake: never Substance use: former Substance use type: marijuana Do You Feel Safe in your Home?: Yes Lack of Transportation: No Lack of Food: Never True Current Housing: I Have Housing Concerned About Future Housing: No Difficulty Paying Gas/Electric Bills: No Difficulty Paying for Meds: No Currently Unemployed: No Difficulty w/ Childcare or Family Care: No Living arrangements: with family Gender identity (if verbalized by the patient): Male Exam Narrative: General appearance: Well-developed, well-nourished Skin: Normal color Head: Normocephalic, nontraumatic Eyes: Clear conjunctiva, no congestion, no foreign body, pupils reactive to light and accommodation, no abnormalities Chest and respiratory: Airway patent, no respiratory distress, no accessory muscle use Heart: Regular rate/rhythm Abdomen: Soft, nontender, no organomegaly, quiet bowel sounds Neurologic: Alert and oriented ×3, FIXTURE DESIGNER is normal as tested, no gross motor deficit Course Vital Signs Vital signs: Vital Signs Temperature 36.6 C 08/20/24 12:33 Pulse Rate 86 05/17/25 12:33 Respiratory Rate 20 08/20/24 12:33 Blood Pressure 149/85 H 08/20/24 12:33 Pulse Oximetry 100 08/20/24 12:33 Oxygen Delivery Room Air 08/20/24 12:33 Temperature 36.6 C 08/20/24 12:33 Pulse Rate 86 08/20/24 12:33 Respiratory Rate 20 08/20/24 12:33 Blood Pressure 149/85 H 08/20/24 12:33 Pulse Oximetry 100 08/20/24 12:33 Oxygen Delivery Room Air 08/20/24 12:33 Procedures FB Removal Eye Foreign Body #1: Foreign Body Removal Date: 08/20/24 Foreign Body Removal Time: 13:14 Time Out performed: Yes ( 5 minutes) Location: eye (L) and eye (R) Topical anesthetic used: tetracaine Foreign body: other ( no foreign body) Evidence of corneal penetration: No Technique: irrigation Procedure performed under: direct visualization with magnification Post-procedure medication: topical anesthetic Patient tolerated procedure: well Foreign Body Removal Narrative: tetracaine eyedrops, fluorescent stain, no foreign body, no corneal abrasion, scratch of the right upper eyelid is a possibility. Right eye irrigation, blurry vision his gun, patient became much better prior to discharge on erythromycin eye ointment MDM - Eye Problem MDM Narrative Medical decision making narrative: eye exam showed no significant abnormalities, Tetracaine eyedrops, fluorescent dye showed no abrasions or foreign body. Right eye irrigation, patient feel better, new Discharged on erythromycin ophthalmic ointment Critical Care Time Critical Care Time Critical Care Time: No Discharge Plan Discharge Clinical Impression: Eye abrasion Patient Disposition: Home Condition: Stable Instructions: How to Use Eye Drops (ED), Eye Foreign Body (ED) Additional Instructions: Return if symptoms are worsening , call your family physician for appointment, take Tylenol as as needed for aches and pain, continue home medications. Patient Language: Guyanese Prescriptions: New erythromycin 5 mg/gram (0.5 %) ointment 0.5 inch ophthalmic (eye) QID Qty: 1 0RF No Action ondansetron 4 mg tablet,disintegrating 4 mg PO Q4H PRN (Reason: nausea and vomiting) 3 Days Qty: 10 0RF Follow-up/Referrals: Andreia Cabral CARDING MACHINE FEEDER [Primary Care Provider] -
--- OUTSIDE RECORDS SUMMARY | 2024-08-20 13:07 | XMS_ITS | Clinical Summary ---
Author Organization [facility] Address [address] [place] [address] Care Team Providers Care Geodetic Advisor Name Role Phone Andreia Cabral WATER GAS OPERATOR Primary Care Provider [phone] Allergies No known active allergies Medications ondansetron [...] on file Legal Sex Male 2:35 AM TANK ERECTOR Gender Identity Not on file Sexual Orientation Not on file Last Filed Vital Signs Vital Sign Reading Time Taken Comments Blood Pressure 139/77 05/15/2021 2:45 AM TANK ERECTOR Pulse 86 05/15/2021 2:45 AM TANK ERECTOR Temperature 36.1 C (97 F) 05/15/2021 2:45 AM TANK ERECTOR Respiratory Rate 18 05/15/2021 2:45 AM TANK ERECTOR Oxygen Saturation 96% 05/15/2021 2:45 AM TANK ERECTOR Inhaled Oxygen Concentration - - Weight 71.7 kg (158 lb) 05/15/2021 2:45 AM TANK ERECTOR Height 180.3 cm (5' 11 ) 05/15/2021 2:45 AM TANK ERECTOR Body Mass Index 22.04 05/15/2021 2:45 AM TANK ERECTOR Plan of Treatment Health Maintenance Due Date [...] patient's age to complete this topic Insurance [place] Care Teams Geodetic Advisor Relationship Specialty Start Date End Date Andreia Cabral FNP [address] [place] [address] PCP - General NURSE PRACTITIONER 05/15/21
== END 2024-08-20 13:15 | disposition home or self-care (01) ==
PROVIDERS: Emergency Provider Emergency Medicine; PCP Nurse Practitioner Family
DX: S05.01XA Injury of conjunctiva and corneal abrasion without foreign body, right eye, initial encounter (principal); F17.210 Nicotine dependence, cigarettes, uncomplicated; X58.XXXA Exposure to other specified factors, initial encounter
CPT/HCPCS: 99283

== ENCOUNTER 2024-09-29 09:07 | Emergency (ER) | payer OTHER, SELFPAY ==
[2024-09-29 09:07] VITALS: BP 125/95; PULSE 76; RESP 16; TEMP 36.6; O2SAT 100
--- NOTE | 2024-09-29 09:08 | ECG_ITS ---
Test Date: 2024-09-29 09:23:22 Measurements Intervals [place] Rate: 59 P: 60 [place]: 161 QRS: 72 QRSD: 110 T: 52 QT: 378 QTc: 375 Interpretive Statements SINUS BRADYCARDIA WITH MARKED RHYTHM IRREGULARITY, POSSIBLE NON-CONDUCTED PAC, SA BLOCK, AV BLOCK, OR SINUS PAUSE INCOMPLETE RIGHT BUNDLE BRANCH BLOCK ABNORMAL ECG Compared to ECG 08/09/2024 08:34:48 SINUS PAUSE NOW PRESENT Electronically Signed On 09-29-2024 09:25:43 CDT by Jean Paul Farooq D.O.
[2024-09-29 09:30] VITALS: BP 119/81; PULSE 63; RESP 17; O2SAT 98
[2024-09-29 09:46] LABS: Alanine Aminotransferase 19 U/L (6-50); Albumin Level 4.5 g/dL (3.5-5.1); Alkaline Phosphatase 59 U/L (38-126); Anion Gap 7 mmol/L (4-12); Aspartate Amino Transferase 24 U/L (17-59); Bilirubin,Total 0.6 mg/dL (0.2-1.3); Blood Urea Nitrogen 16 mg/dL (9-20); Calcium 9.4 mg/dL (8.4-10.2); Carbon Dioxide 25 mmol/L (22-30); Chloride 107 mmol/L (98-107); Estimated CRCL calculation 123 ml/min; Estimated Glomerular Filt Rate > 60; Glucose 95 mg/dL (65-110); Osmolality Calculated 289 mOsm/kg (285-295); Potassium 4.1 mmol/L (3.4-5.0); Sodium 139 mmol/L (137-145); Total Protein 7.6 g/dL (6.3-8.2)
[2024-09-29 09:58] LABS: Troponin I < 0.012 ng/mL (0.000-0.034)
[2024-09-29 10:00] VITALS: BP 116/81; PULSE 60; RESP 17; O2SAT 98
--- NOTE | 2024-09-29 10:01 | ED_ITS ---
HPI - Chest Pain General Chief Complaint: Chest Pain Stated Complaint: Heart pain Time Seen by Provider: 09/29/24 09:12 Source: patient Mode of arrival: ambulatory Limitations: no limitations History of Present Illness HPI narrative: this is a 29-year-old male with no significant past medical history presents with left-sided chest discomfort reproducible with palpation with no shortness of breath no radiation of his pain no nausea vomiting. The patient is anxious because father having heart attack at an early age. Otherwise no fever chills no shortness of breath no cough or congestion. MD complaint: chest heaviness and chest discomfort Onset (ago): hour(s) Timing of current episode: episodic Onset: during rest Pain location: left chest ( Reproducible with palpation) Pain radiation: none Severity: mild Quality: aching Related Data Allergies Allergy/AdvReac Type Severity Reaction Status Date / Time amoxicillin Allergy Severe Anxiety Verified 09/08/24 13:33 CILANTRO Allergy Mild Itching Verified 09/08/24 13:33 Review of Systems 2 Review of Systems: All systems reviewed & are unremarkable except as noted in HPI and below PMFSH Past Medical History Medical History Cellulitis of chin No active medical problems Surgical History Surgical History No pertinent past surgical history Family History Family History Father Acute myocardial infarction Other Hypertension Social History Social History Smoking status: Current every day smoker Tobacco type: cigarettes and e-cigarettes/vaping Alcohol intake: never Substance use: former Substance use type: marijuana Do You Feel Safe in your Home?: Yes Lack of Transportation: No Lack of Food: Never True Current Housing: I Have Housing Concerned About Future Housing: No Difficulty Paying Gas/Electric Bills: No Difficulty Paying for Meds: No Currently Unemployed: No Difficulty w/ Childcare or Family Care: No Living arrangements: with family Gender identity (if verbalized by the patient): Male Exam 2 Const: General: cooperative, healthy appearing, comfortable, no acute distress and well developed Eyes: General: appearance normal, both eyes and all related structures V isual De Leon: normal visual de leon by confrontation Neck: Neck: normal visual inspection, full ROM, no lymphadenopathy and no meningeal signs Chest: Chest palpation & inspection: normal inspection of the chest and abnormal inspection of the chest ( Reproducible chest pain with palpation) Resp: Effort & Inspection: normal respiratory effort and able to speak in complete sentences Auscultation: clear to auscultation bilaterally Cardio: Jugular venous distension: no JVD Palpation: normal PMI Rate: r egular rate Rhythm: regular rhythm : General: Yes bimanual renal exam normal bilaterally Urinary Catheter: Urinary Catheter: patent and draining Skin: General skin exam: normal color and no rashes or lesions noted Neuro: General: oriented to person, oriented to place, oriented to time and patient oriented x3 Extrem: General: normal to inspection, full ROM and capillary refill normal Course Course Emergency Course: patient doing well EKG reviewed with no ST or T changes and has a normal EKG, with a negative troponin advised patient to take Aleve or Motrin as needed and follow with his primary care physician. Vital Signs Vital signs: Vital Signs Temperature 36.6 C 09/29/24 09:07 Pulse Rate 76 09/29/24 09:07 Respiratory Rate 16 09/29/24 09:07 Blood Pressure 125/95 H 09/29/24 09:07 Pulse Oximetry 100 09/29/24 09:07 Oxygen Delivery Room Air 09/29/24 09:07 Temperature 36.6 C 09/29/24 09:07 Pulse Rate 76 09/29/24 09:07 Respiratory Rate 16 09/29/24 09:07 Blood Pressure 125/95 H 09/29/24 09:07 Pulse Oximetry 100 09/29/24 09:07 Oxygen Delivery Room Air 09/29/24 09:07 MDM - Chest Pain Lab Data 09/29/24 09:28 Labs: Lab Results 09/29/24 Range/Units 09:28 Sodium 139 (137-145) mmol/L Potassium 4.1 (3.4-5.0) mmol/L Chloride 107 (98-107) mmol/L Carbon Dioxide 25 (22-30) mmol/L Anion Gap 7 (4-12) mmol/L BUN 16 (9-20) mg/dL Creatinine 0.82 (0.7-1.3) mg/dL Estim Creat Clear Calc 123 ml/min Estimated GFR > 60 (59 - ) Glucose 95 (65-110) mg/dL Calculated Osmolality 289 (285-295) mOsm/kg Calcium 9.4 (8.4-10.2) mg/dL Total Bilirubin 0.6 (0.2-1.3) mg/dL AST 24 (17-59) U/L ALT 19 (6-50) U/L Alkaline Phosphatase 59 (38-126) U/L Troponin I < 0.012 (0.000-0.034) ng/mL Total Protein 7.6 (6.3-8.2) g/dL Albumin 4.5 (3.5-5.1) g/dL Critical Care Time Critical Care Time Critical Care Time: No Discharge Plan Discharge Clinical Impression: Costalchondritis Patient Disposition: Home Condition: Stable Instructions: Antibiotic Form, Costochondritis (ED), Chest Wall Pain (ED) Additional Instructions: Advised patient to take Tylenol or Motrin as needed and follow with primary care physician within 1 week for further evaluation and treatment. Patient Language: [place] Prescriptions: No Action erythromycin 5 mg/gram (0.5 %) ointment 0.5 inch ophthalmic (eye) QID Qty: 1 0RF ondansetron 4 mg tablet,disintegrating 4 mg PO Q4H PRN (Reason: nausea and vomiting) 3 Days Qty: 10 0RF sumatriptan succinate [Imitrex] 25 mg tablet 25 mg PO .COMPLEX 30 Days Qty: 9 0RF Rx Instructions: 25 mg orally; Follow-up/Referrals: Andreia Cabral NP [Primary Care Provider] - Time of Disposition: 10:06
[2024-09-29 10:15] VITALS: BP 116/81; PULSE 60; RESP 17; TEMP 36.6; O2SAT 98
== END 2024-09-29 10:15 | disposition home or self-care (01) ==
PROVIDERS: Emergency Provider Emergency Medicine; PCP Nurse Practitioner Family
DX: M94.0 Chondrocostal junction syndrome [Tietze] (principal); F17.210 Nicotine dependence, cigarettes, uncomplicated
CPT/HCPCS: 36415; 80053; 84484; 93005; 99284

== ENCOUNTER 2024-12-20 14:07 | Emergency (ER) | payer OTHER, SELFPAY ==
--- NOTE | ~2024-12-20 | CT_ITS ---
EXAM: CT soft tissue neck w con - 12/20/2024 14:45 CDT History: 29 years old Male with FB left esophagus sensation Technique: After injection of intravenous contrast, transaxial images from the base of the skull to the lung apices were obtained. 100 cc of [id number]-[id number] were used for this study. Coronal and sagittal reformats were constructed. Automatic exposure control was used for this study. Comparison: None available Findings: Near complete opacification of left maxillary sinus. The remaining visualized paranasal sinuses and mastoid air cells are clear. The oropharynx, hypopharynx, and larynx appear unremarkable. The parotid, submandibular, and thyroid glands are unremarkable. The trachea is midline without evidence of abnormality. Vocal cords are unremarkable. No lymphadenopathy. Imaged vascular structures appear unremarkable. No gross bony anomalies are noted. Imaged brain parenchyma is unremarkable without evidence of mass, abnormal enhancement, or abnormal fluid collections. Imaged orbits are normal. Lung apices appear normal. Impression: Near complete opacification of left maxillary sinus. Correlate clinically to rule out sinusitis. Reviewed, dictated and finalized at location N. Impression: Near complete opacification of left maxillary sinus. Correlate clin ically to rule out sinusitis.
[2024-12-20 14:07] VITALS: BP 125/75; PULSE 80; RESP 14; TEMP 36.5; O2SAT 96
--- NOTE | 2024-12-20 14:16 | ED.GENADULT ---
HPI - General Adult General Chief complaint: Upper Respiratory Infection Stated complaint: foreign object in throat Time Seen by Provider: 12/20/24 14:15 Source: patient Mode of arrival: ambulatory Limitations: no limitations History of Present Illness HPI narrative: Patient is a 29-year-old male with a painful spot of his esophagus on the left mid throat region of his neck for the past hour. He was eating at [employer] without bones and had 2 potato chips and drink. He does not have any trouble during eating. About 20-30 minutes after eating, the pain started and it is a sharp sensation and moves when he moves his tongue. No difficulty swallowing since the pain has started. No nausea vomiting. Onset (ago): hour(s) (One) Location: neck (Left side mid throat) Radiation: non-radiation Severity: mild Severity scale (1-10): 2 Quality: sharp Pain Consistency: intermittent Relieving factors: rest Exacerbating factors: eating (Swallowing) Associated symptoms: denies other symptoms Treatments prior to arrival: other (Patient tried to retrieve reaching down his throat on 2-3 occasions) Related Data Allergies Allergy/AdvReac Type Severity Reaction Status Date / Time amoxicillin Allergy Severe Anxiety Verified 12/20/24 14:14 CILANTRO Allergy Mild Itching Verified 12/20/24 14:14 Review of Systems Review of Systems: All systems reviewed & are unremarkable except as noted in HPI and below Constitutional: Constitutional: Reports no additional constitutional complaints Eyes: Eyes: Reports no additional eye complaints ENT: Reports system reviewed and no additional complaints, except as documented Cardiovascular: Cardiovascular: Reports no additional cardiovascular complaints Respiratory: Respiratory: Reports no additional respiratory complaints Gastrointestinal: Gastrointestinal: Reports no additional gastrointestinal complaints Genitourinary: Genitourinary: Reports no additional male genitourinary complaints Musculoskeletal: Musculoskeletal: Reports no additional musculoskeletal complaints Integumentary/Breasts: Skin/Breast: Reports system reviewed and no additional complaints, except as docu Neurologic: Reports system reviewed and no additional complaints, except as documented Psychiatric: Psychiatric: Reports no additional psychiatric complaints Endocrine: Endocrine: Reports no additional endocrine complaints Hematologic/Lymphatic: Hematologic/Lymphatic: Reports no additional hematologic/lymphatic complaints Allergic/Immunologic: Allergic/Immunologic: Reports no additional allergic/immunologic complaints PMFSH Past Medical History Medical History Cellulitis of chin No active medical problems Surgical History Surgical History No pertinent past surgical history Family History Family History Father Acute myocardial infarction Other Hypertension Social History Social History Smoking status: Current every day smoker Tobacco type: cigarettes and e-cigarettes/vaping Alcohol intake: never Substance use: former Substance use type: marijuana Do You Feel Safe in your Home?: Yes Lack of Transportation: No Lack of Food: Never True Current Housing: I Have Housing Concerned About Future Housing: No Difficulty Paying Gas/Electric Bills: No Difficulty Paying for Meds: No Currently Unemployed: No Difficulty w/ Childcare or Family Care: No Living arrangements: with family Gender identity (if verbalized by the patient): Male Exam Const: General: healthy appearing Nutritional Appearance: well nourished Orientation/consciousness: patient oriented x3 HENMT: Head: normal to inspection Ears: external ears normal Face/Nose/Sinus: Normal external nose present Eyes: Conjunctivae: conjunctivae normal Pupils: Equal, round and reactive pupils present EOM: EOMs intact bilaterally Neck: Neck: normal visual inspection Chest: Chest palpation & inspection: normal inspection of the chest Resp: Effort & Inspection: normal respiratory effort and not labored Auscultation: clear to auscultation bilaterally and no crackles Cardio: Rate: regular rate Rhythm: regular rhythm Heart sounds: no murmurs GI: Inspection: non-distended GI Palp: Yes Soft to palpation and No Tenderness to palpation present (GI) Auscultation: normal bowel sounds : General: Yes bladder normal to palpation Back/Spine/Pelvis: Back: no CVA tenderness Skin: General skin exam: normal color Rashes: no rashes Wounds: no wounds Neuro: General: patient oriented x3, moves all extremities and no meningeal signs Extrem: General: normal to inspection Psych: Mental Status: mental status grossly normal Affect: normal affect Attitude: cooperative Course Vital Signs Vital signs: Vital Signs Temperature 36.5 C 12/20/24 14:07 Pulse Rate 80 12/20/24 14:07 Respiratory Rate 14 12/20/24 14:07 Blood Pressure 125/75 12/20/24 14:07 Pulse Oximetry 96 12/20/24 14:07 Oxygen Delivery Room Air 12/20/24 14:07 Temperature 36.5 C 12/20/24 14:07 Pulse Rate 80 12/20/24 14:07 Respiratory Rate 14 12/20/24 14:07 Blood Pressure 125/75 12/20/24 14:07 Pulse Oximetry 96 12/20/24 14:07 Oxygen Delivery Room Air 12/20/24 14:07 Medical Decision Making MDM Narrative Medical decision making narrative: Patient is a 29-year-old male with foreign body sensation in his left throat mid neck. We will get labs and a CT scan of the neck with contrast. Vital Signs Vital Signs: Vital Signs Temperature 36.5 C 12/20/24 14:07 Pulse Rate 80 12/20/24 14:07 Respiratory Rate 14 12/20/24 14:07 Blood Pressure 125/75 12/20/24 14:07 Pulse Oximetry 96 12/20/24 14:07 Oxygen Delivery Room Air 12/20/24 14:07 Temperature 36.5 C 12/20/24 14:07 Pulse Rate 80 12/20/24 14:07 Respiratory Rate 14 12/20/24 14:07 Blood Pressure 125/75 12/20/24 14:07 Pulse Oximetry 96 12/20/24 14:07 Oxygen Delivery Room Air 12/20/24 14:07 Lab Data Lab results reviewed: Yes I reviewed the patient's lab results. 12/20/24 14:32 12/20/24 14:32 Labs: Lab Results 12/20/24 Range/Units 14:32 WBC 6.6 (4.8-10.8) K/mm3 RBC 4.33 L (4.70-6.10) M/mm3 Hgb 13.2 L (14.0-18.0) g/dL Hct 39.0 L (40.0-54.0) % MCV 90.1 (78.0-102.0) fL MCH 30.5 (27.0-31.0) pg MCHC 33.8 (32-36) g/dL RDW 11.0 L (11.6-14.4) % Plt Count 271 (150-420) K/mm3 MPV 9.0 (8.7-11.0) fl Immature Gran % (Auto) 0.3 H (0.0-0.0) % Neut % (Auto) 59.9 (50.0-70.0) % Lymph % (Auto) 27.8 (18.0-42.0) % Woodson % (Auto) 9.2 (2.0-11.0) % Eos % (Auto) 2.3 (1.0-6.0) % Baso % (Auto) 0.5 (0.0-1.0) % Lymph # (Auto) 1.84 (1.10-4.50) K/mm3 Woodson # (Auto) 0.61 (0.10-0.90) K/mm3 Eos # (Auto) 0.15 (0.02-0.50) K/mm3 Baso # (Auto) 0.03 (0.00-0.10) K/mm3 Abs Immat Gran (auto) 0.02 H (0.00-0.00) K/mm3 Absolute Neuts (auto) 3.98 (1.70-7.20) K/mm3 Absolute Nucleated RBC 0.00 (0.00-0.00) K/mm3 Nucleated RBC % 0.0 (0-0.0) % PT 10.9 (9.50-12.1) Seconds INR 1.0 APTT 28.3 (23.9-30.70) Sec Sodium 144 (137-145) mmol/L Potassium 3.9 (3.4-5.0) mmol/L Chloride 106 (98-107) mmol/L Carbon Dioxide 28 (22-30) mmol/L Anion Gap 10 (4-12) mmol/L BUN 14 (9-20) mg/dL Creatinine 1.12 (0.7-1.3) mg/dL Estim Creat Clear Calc 94 ml/min Estimated GFR > 60 (59 - ) Glucose 92 (65-110) mg/dL Calculated Osmolality 298 H (285-295) mOsm/kg Calcium 9.4 (8.4-10.2) mg/dL Total Bilirubin 0.9 (0.2-1.3) mg/dL AST 28 (17-59) U/L ALT 22 (6-50) U/L Alkaline Phosphatase 56 (38-126) U/L Total Protein 8.4 H (6.3-8.2) g/dL Albumin 4.6 (3.5-5.1) g/dL Imaging Data Attestation: I personally reviewed and interpreted this imaging study as follows: Radiologist's impression: CT scan of the soft tissue neck with contrast shows Impression: Near complete opacification of left maxillary sinus. Correlate clinically to rule out sinusitis. (patient has no particular complaints of his left maxillary sinus) Discharge Plan Discharge Clinical Impression: Sensation of foreign body in esophagus Patient Disposition: Home Condition: Stable Instructions: Esophageal Foreign Body (ED) Additional Instructions: Please follow-up with the primary doctor and or an ENT and/or GI specialist. If the pain continues, a scope can be placed to take a direct visualization of this area. Patient Language: Samoan Prescriptions: No Action erythromycin 5 mg/gram (0.5 %) ointment 0.5 inch ophthalmic (eye) QID Qty: 1 0RF ondansetron 4 mg tablet,disintegrating 4 mg PO Q4H PRN (Reason: nausea and vomiting) 3 Days Qty: 10 0RF naproxen 500 mg tablet 500 mg PO BID Qty: 14 0RF imiquimod 5 % cream in packet 1 applic topical QHS 84 Days Qty: 24 0RF Rx Instructions: Apply once daily at bedtime until warts completely disappear up to a maximum of 12 weeks. Follow-up/Referrals: Andreia Cabral NP [Primary Care Provider, Family Practice] Time of Disposition: 15:32
[2024-12-20 14:36] LABS: Hematocrit 39.0 % (40.0-54.0); Hemoglobin 13.2 g/dL (14.0-18.0); Immature Granulocyte Percent A 0.3 % (0.0-0.0); Lymphocytes Absolute Auto 1.84 K/mm3 (1.10-4.50); Mean Corpuscular HGB Conc 33.8 g/dL (32-36); Mean Corpuscular Hemoglobin 30.5 pg (27.0-31.0); Mean Corpuscular Volume 90.1 fL (78.0-102.0); Nucleated Red Blood Cells Absolute Auto 0.00 K/mm3 (0.00-0.00); Nucleated Red Blood Cells Perc 0.0 % (0-0.0); Platelet Count Result 271 K/mm3 (150-420); Red Blood Count 4.33 M/mm3 (4.70-6.10); White Blood Count 6.6 K/mm3 (4.8-10.8)
[2024-12-20 14:48] LABS: Alanine Aminotransferase 22 U/L (6-50); Albumin Level 4.6 g/dL (3.5-5.1); Alkaline Phosphatase 56 U/L (38-126); Anion Gap 10 mmol/L (4-12); Aspartate Amino Transferase 28 U/L (17-59); Bilirubin,Total 0.9 mg/dL (0.2-1.3); Blood Urea Nitrogen 14 mg/dL (9-20); Calcium 9.4 mg/dL (8.4-10.2); Carbon Dioxide 28 mmol/L (22-30); Chloride 106 mmol/L (98-107); Estimated CRCL calculation 94 ml/min; Estimated Glomerular Filt Rate > 60; Glucose 92 mg/dL (65-110); Osmolality Calculated 298 mOsm/kg (285-295); Potassium 3.9 mmol/L (3.4-5.0); Sodium 144 mmol/L (137-145); Total Protein 8.4 g/dL (6.3-8.2)
[2024-12-20 14:55] LABS: INR 1.0; Partial Thromboplastin Time 28.3 Sec (23.9-30.70); Prothrombin Time 10.9 Seconds (9.50-12.1)
[2024-12-20 15:35] VITALS: BP 124/80; PULSE 76; RESP 16; O2SAT 98
--- OUTSIDE RECORDS SUMMARY | 2024-12-20 15:51 | XMS_ITS | Clinical Summary ---
Author Organization [facility] Address [address] [place] [address] Care Team Providers Care Sole Leveling Machine Operator Name Role Phone Andreia Cabral LOCAL DRIVER Primary Care Provider [phone] Allergies No known active allergies Medications ondansetron [...] on file Legal Sex Male 2:35 AM SAUSAGE COOKER Gender Identity Not on file Sexual Orientation Not on file Last Filed Vital Signs Vital Sign Reading Time Taken Comments Blood Pressure 139/77 05/15/2021 2:45 AM SAUSAGE COOKER Pulse 86 05/15/2021 2:45 AM SAUSAGE COOKER Temperature 36.1 C (97 F) 05/15/2021 2:45 AM SAUSAGE COOKER Respiratory Rate 18 05/15/2021 2:45 AM SAUSAGE COOKER Oxygen Saturation 96% 05/15/2021 2:45 AM SAUSAGE COOKER Inhaled Oxygen Concentration - - Weight 71.7 kg (158 lb) 05/15/2021 2:45 AM SAUSAGE COOKER Height 180.3 cm (5' 11) 05/15/2021 2:45 AM SAUSAGE COOKER Body Mass Index 22.04 05/15/2021 2:45 AM SAUSAGE COOKER Plan of Treatment Health Maintenance Due Date Last Done Comments Annual Physical 2000 DTaP, Tdap and Td Vaccines (5 - Tdap) 2008 09/19/1998, 01/18/1998, 1997, Additional history exists Hepatitis C 07/04/2015 HPV Vaccines (1 - 3-dose SCDM series) 2024 COVID-19 Vaccine ( season) 2024 Hepatitis B Vaccines Completed 09/19/1998, 1997, 1997, Additional history exists Meningococcal B Vaccine Aged Out No l [...] patient's age to complete this topic Insurance [employer] Care Teams Sole Leveling Machine Operator Relationship Specialty Start Date End Date Andreia Cabral FNP [address] [place] [address] PCP - General NURSE PRACTITIONER 05/15/21
--- OUTSIDE RECORDS SUMMARY | 2024-12-20 16:16 | XMS_ITS | Clinical Summary ---
Author Organization [facility] Address [address] [place] [address] Care Team Providers Care Tube Sizer And Cutter Operator Name Role Phone Andreia Cabral WOODWORK SALVAGE INSPECTOR Primary Care Provider [phone] Allergies No known active allergies Medications ondansetron [...] on file Legal Sex Male 2:35 AM ENVIRONMENTAL SERVICES MANAGER Gender Identity Not on file Sexual Orientation Not on file Last Filed Vital Signs Vital Sign Reading Time Taken Comments Blood Pressure 139/77 05/15/2021 2:45 AM ENVIRONMENTAL SERVICES MANAGER Pulse 86 05/15/2021 2:45 AM ENVIRONMENTAL SERVICES MANAGER Temperature 36.1 C (97 F) 05/15/2021 2:45 AM ENVIRONMENTAL SERVICES MANAGER Respiratory Rate 18 05/15/2021 2:45 AM ENVIRONMENTAL SERVICES MANAGER Oxygen Saturation 96% 05/15/2021 2:45 AM ENVIRONMENTAL SERVICES MANAGER Inhaled Oxygen Concentration - - Weight 71.7 kg (158 lb) 05/15/2021 2:45 AM ENVIRONMENTAL SERVICES MANAGER Height 180.3 cm (5' 11) 05/15/2021 2:45 AM ENVIRONMENTAL SERVICES MANAGER Body Mass Index 22.04 05/15/2021 2:45 AM ENVIRONMENTAL SERVICES MANAGER Plan of Treatment Health Maintenance Due Date [...] patient's age to complete this topic Insurance [place] Care Teams Tube Sizer And Cutter Operator Relationship Specialty Start Date End Date Andreia Cabral FNP [address] [place] [address] PCP - General NURSE PRACTITIONER 05/15/21
== END 2024-12-20 15:36 | disposition home or self-care (01) ==
PROVIDERS: Emergency Provider Emergency Medicine; PCP Nurse Practitioner Family
DX: R09.A2 Foreign body sensation, throat (principal); F17.210 Nicotine dependence, cigarettes, uncomplicated
CPT/HCPCS: 36415; 70491; 80053; 85025; 85610; 85730; 99284; Q9967